=== PATIENT | male | born 1970 | race Caucasian/White ===

== ENCOUNTER 2025-06-15 13:39 | Emergency (ER) | payer MEDICAID, OTHER ==
[~2025-06-15] VITALS: Ht 162.6 cm; Wt 61.0 kg
[2025-06-15 13:54] VITALS: TEMP 37.1; O2SAT 98
[2025-06-15] MEDS ORDERED: SULF1TAB48 MT (15:04)
[2025-06-15] MEDS ORDERED: AMOX1TAB16 MT (15:04)
[2025-06-15] MEDS ORDERED: BACI3.5O19 LEFTEYE (15:04)
[2025-06-15] MEDS ORDERED: IBUP-2028 MT (15:05)
[2025-06-15] MEDS ORDERED: TOPUD PO (15:05)
[2025-06-15 16:29] VITALS: BP 128/87; PULSE 82; RESP 16; O2SAT 98
== END 2025-06-15 16:30 | disposition home or self-care (01) ==
LOC: ER 13:39
DX: H00.19 Chalazion unspecified eye, unspecified eyelid (principal); H66.93 Otitis media, unspecified, bilateral; Z79.899 Other long term (current) drug therapy
CPT/HCPCS: 99283